=== PATIENT | male | born 1985 | race Caucasian/White ===

== ENCOUNTER 2017-07-12 03:50 | Emergency (ER) | payer SELFPAY ==
[~2017-07-12] VITALS: Ht 177.8 cm; Wt 68.0 kg
[~2017-07-12 03:50] MED LIST: NOCURR
[2017-07-12 05:10] LABS: BASOPHILS # (AUTO) 0.04 K/uL (0.00-0.20); BASOPHILS % (AUTO) 0.5 % (0.0-2.0); EOSINOPHILS # (AUTO) 0.33 K/uL (0.00-0.70); EOSINOPHILS % (AUTO) 5.02 % (1.0-6.0); HEMATOCRIT 39.3 % (41-53); LYMPHOCYTES # (AUTO) 2.2 K/uL (1.0-4.8); LYMPHOCYTES % (AUTO) 33.4 % (22.0-44.0); MEAN CORPUSCULAR HEMOGLOBIN 31.7 pg (26.0-34.0); MEAN CORPUSCULAR HGB CONC 33.1 G/dL (31.0-37.0); MEAN CORPUSCULAR VOLUME 96 fL (80-100); MONOCYTES # (AUTO) 0.5 K/uL (0.1-1.0); MONOCYTES % (AUTO) 7.7 % (2.0-9.0); NEUTROPHILS # (AUTO) 3.5 K/uL (1.8-7.7); NEUTROPHILS % (AUTO) 53.4 % (40.0-70.0); PLATELET COUNT (AUTO) 291 K/uL (150-450); WHITE BLOOD COUNT (AUTO) 6.6 K/uL (4.5-11.0)
[2017-07-12 05:20] LABS: ANION GAP 5 mmol/L (8-16); CARBON DIOXIDE 31 mmol/L (22-29); CHLORIDE 102 mmol/L (98-107); CREATININE 1.09 mg/dL (0.60-1.30); GLOMERULAR FILTR. RATE CALC > 60 mL/min (>60); POTASSIUM 4.7 mmol/L (3.5-5.1); SODIUM SERUM 138 mmol/L (136-145); UREA NITROGEN, BLOOD 20 mg/dL (7-18)
[2017-07-12 05:23] LABS: URIC ACID 5.3 mg/dL (2.6-7.2)
[2017-07-12 05:44] VITALS: BP 126/75
== END 2017-07-12 05:59 | disposition home or self-care (01) ==
LOC: EMS 03:51
DX: S93.401A Sprain of unspecified ligament of right ankle, initial encounter (principal); F12.90 Cannabis use, unspecified, uncomplicated; X58.XXXA Exposure to other specified factors, initial encounter; Y93.89 Activity, other specified; Y92.89 Other specified places as the place of occurrence of the external cause; Y99.8 Other external cause status
CPT/HCPCS: 84550; 99285

== ENCOUNTER 2024-06-16 10:58 | Emergency (ER) | payer MEDICAID, OTHER ==
[~2024-06-16] VITALS: Ht 180.3 cm; Wt 79.0 kg
[~2024-06-16 10:58] MED LIST changes: +ACET-2247 PO; +FLUO-418 PO; +MAGN-169 PO; -NOCURR
[2024-06-16 10:59] VITALS: BP 111/67; PULSE 72; RESP 16; TEMP 98.3; O2SAT 98
[2024-06-16] MEDS: IBUPROFEN 400 MG TABLET PO ONE (11:32)
[2024-06-16] MEDS: CYCLOBENZAPRINE HCL 10 MG TABLET PO ONE (11:32)
[2024-06-16] MEDS: LIDOCAINE 5% TRANSDERMAL PATCH TD ONE (11:32)
== END 2024-06-16 11:56 | disposition home or self-care (01) ==
LOC: EMS 10:58
DX: M54.2 Cervicalgia (principal); M54.6 Pain in thoracic spine; R51.9 Headache, unspecified; F41.9 Anxiety disorder, unspecified; F32.A Depression, unspecified; F20.9 Schizophrenia, unspecified; F12.90 Cannabis use, unspecified, uncomplicated; F17.210 Nicotine dependence, cigarettes, uncomplicated; F15.90 Other stimulant use, unspecified, uncomplicated; Z98.890 Other specified postprocedural states; Z90.89 Acquired absence of other organs
CPT/HCPCS: 99284; 99406; Z7502; Z7610